=== PATIENT | female | born 1965 | race Caucasian/White ===

== ENCOUNTER 2017-02-21 21:18 | Emergency (ER) | payer OTHER ==
--- NOTE | ~2017-02-21 | OR ---
ADMIT: 02/21/2017 RM/LOC: ER [facility] MR#: [id number] [address] [address] ELY VARELA [address] [place] [id number] Operative/Delivery Room Report SEX: F AGE: 51 : 1965 SURGERY DATE: 02/21/2017 SURGEON: Madhu Miranda MD PREOPERATIVE DIAGNOSIS: Food bolus in esophagus, meat. POSTOPERATIVE DIAGNOSIS: Food bolus in esophagus, meat. PROCEDURE: EGD and removal of food bolus from distal esophagus. ANESTHESIA: MAC anesthesia. ESTIMATED BLOOD LOSS: None. INDICATION FOR PROCEDURE: Please see H and P. DESCRIPTION OF PROCEDURE: After the risks, benefits, possible complications, and the alternatives had been explained, and informed consent had been obtained, the patient was taken back to the procedure room, underwent sedation. The flexible EGD scope was introduced. You can see the food bolus stuck in the distal esophagus. I was able to slowly maneuver my scope around it and get it to push down, and then you can see a little bit of a benign web there, had a little rent in it already, and so at this point, I did not feel comfortable re-dilating her anymore. I was able to make it down through the stomach and the second portion of the duodenum that appeared normal. The retroflexion of the scope shows a small hiatal hernia. The scope was slowly withdrawn inspecting the remainder of the esophagus on the way out and the procedure was terminated. She tolerated it well, was taken to recovery room stable and satisfactory condition. Madhu Miranda MD/ ocl JOB #: [id number] CC: Heber Argueta MD, Attending Physician Adal Alcala MD, Family Physician
--- NOTE | 2017-02-22 07:05 | ER ---
ADMIT: 02/21/2017 RM/LOC: ER [facility] MR#: [id number] [address] [address] ELY VARELA [address] [place] [address] Emergency Room Report SEX: F AGE: 51 : 1965 DATE: 02/21/2017 The patient is a 51-year-old female with GERD, bipolar disorder, eating pot roast tonight. After the first bite unable to swallow any further food, had regurgitation. Attempted coke and eructations with no success. Previous EGD did confirm esophagitis. Never had esophageal dilatation or food impaction removal. Exam remarkable for nontoxic, afebrile female. No respiratory distress. Attempts at drinking resulted in regurgitation. Discussed case with Dr. Miranda, who agreed and took patient to OR for food bolus removal. Heber Argueta MD/ jean JOB #: [id number] CC: Heber Argueta MD, Attending Physician Adal Alcala MD, Family Physician
--- NOTE | 2017-03-30 13:25 | CO ---
ADMIT: 02/21/2017 RM/LOC: [facility] MR#: [id number] [address] [address] ELY VARELA S [address] [place] [id number] Consultation Report SEX: F AGE: 51 : 1965 CORRECTED: 02/22/2017 0557 NJV DATE OF CONSULTATION: 02/21/2017 ATTENDING PHYSICIAN: Heber Argueta MD CONSULTING PHYSICIAN: Madhu Miranda MD REASON FOR ADMISSION: Food bolus in the esophagus. HISTORY OF PRESENT ILLNESS: This patient is a 51-year-old female, who was eating roast beef tonight, kind of stuck. Has been unable to get it out for the last couple of hours, came in. She does have a history of GERD. Has had some reflux before. At one point, she did have some food stuck in her esophagus, but it worked its way out on its own and never had to have a scope. A couple of years ago, she had an EGD along with a colonoscopy. Did not require any dilation but had GERD. She has not taken any medication, uses some natural acid reducers. PAST MEDICAL HISTORY: Significant for diabetes for which she takes metformin. ALLERGIES: TO SULFA. PAST SURGICAL HISTORY: She has had previous scopes, laparoscopic cholecystectomy, been in the hospital for birthing. FAMILY HISTORY: Noncontributory. She denies significant alcohol or tobacco. REVIEW OF SYSTEMS: Positive for not able to swallow. Everything else was otherwise completely negative. ADMIT: 02/21/2017 RM/LOC: [facility] MR#: [id number] [address] [address] ELY VARELA S [address] [address] Consultation Report SEX: F AGE: 51 : 1965 PHYSICAL EXAMINATION: GENERAL: She is alert. She is oriented. She is in no significant distress. HEENT: Her sclerae are nonicteric. Extraocular muscles are intact. CHEST: Clear anteriorly. HEART: Regular rate and rhythm. ABDOMEN: Obese, soft. No mass. No organomegaly. Positive bowel sounds. EXTREMITIES: Without clubbing, cyanosis, or edema. ASSESSMENT AND PLAN: Plan EGD. Food bolus removal. Possible dilation. Madhu Miranda MD/ jean JOB #: [id number] CC: Heber Argueta MD, Attending Physician Adal Alcala MD, Family Physician CORRECTED: 02/22/2017 0557 NJV
== END 2017-02-21 22:20 | disposition home or self-care (01) ==
LOC: ER 21:18
PROC: 0DC58ZZ Extirpation of Matter from Esophagus, Via Natural or Artificial Opening Endoscopic (ICD-10-PCS; principal; 2017-02-21)
DX: T18.128A Food in esophagus causing other injury, initial encounter (principal); K22.8 Other specified diseases of esophagus; E11.9 Type 2 diabetes mellitus without complications; Z88.2 Allergy status to sulfonamides; Z79.84 Long term (current) use of oral hypoglycemic drugs; Z90.49 Acquired absence of other specified parts of digestive tract